=== PATIENT | female | born 1940 | race Caucasian/White ===

== ENCOUNTER → 2017-07-19 | Day surgery (SDC) | payer OTHER ==
[~2017-07-19] VITALS: Ht 146.1 cm; Wt 53.6 kg
[2017-07-19 13:37] LABS: CREATININE 1.2 mg/dL (0.5-1.0); POTASSIUM 4.3 mmol/L (3.5-5.1)
== END | disposition home or self-care (01) ==
LOC: FAS 12:00
PROVIDERS: Anesthesiology
DX: C20 Malignant neoplasm of rectum (principal); K57.30 Diverticulosis of large intestine without perforation or abscess without bleeding; I10 Essential (primary) hypertension; J44.9 Chronic obstructive pulmonary disease, unspecified; M19.90 Unspecified osteoarthritis, unspecified site; Q35.9 Cleft palate, unspecified; F32.9 Major depressive disorder, single episode, unspecified; F17.210 Nicotine dependence, cigarettes, uncomplicated; Z86.010 Personal history of colon polyps; Z96.659 Presence of unspecified artificial knee joint; Z90.89 Acquired absence of other organs; Z90.710 Acquired absence of both cervix and uterus; Z90.722 Acquired absence of ovaries, bilateral; Z88.6 Allergy status to analgesic agent; Z91.041 Radiographic dye allergy status; Z98.1 Arthrodesis status; Z79.899 Other long term (current) drug therapy; Z98.890 Other specified postprocedural states
CPT/HCPCS: 36415; 80048